=== PATIENT | female | born 1945 | race Caucasian/White ===

== ENCOUNTER 2018-08-16 06:00 | Day surgery (SDC) | payer MEDICARE, BC ==
[2018-08-16] MEDS ORDERED: Ketamine HCl 50 MG/ML IJ ONE (06:01)
[2018-08-16] MEDS ORDERED: DIPRIVAN 200 MG/20 ML IV ONE (06:01)
[2018-08-16] MEDS ORDERED: Lactated Ringers 1,000 ML IV SCH (06:30)
--- NOTE | 2018-08-16 08:42 | OP ---
SURGERY DATE/TIME: 08/16/2018 0716 PREOPERATIVE DIAGNOSIS: Abnormal Cologuard screening test. POSTOPERATIVE DIAGNOSIS: Colon polyps x4. PROCEDURE: Colonoscopy. SURGEON: Sal Rosenberg M.D. ANESTHESIA: MAC by Jerson Keene CRNA. ESTIMATED BLOOD LOSS: Minimal. SPECIMENS: There were two hot forceps polypectomies and two hot snare polypectomies. DESCRIPTION OF PROCEDURE: After informed written consent was obtained, the patient was taken to the endoscopy suite. She underwent monitored anesthesia. A digital rectal exam showed normal sphincter tone and no internal lesions. The scope was inserted into the rectum and sequentially the entire colonic mucosa was traversed. The level of cecum was reached and verified with direct visualization of ileocecal valve. There were two large sessile polyps, one in the cecum and one in the ascending colon very proximal ascending just outside the cecum, which were removed with hot snare in their entirety and retrieved with a trap and sent for pathology testing. There were two smaller more flat polyps which were removed with forceps removed in their entirety with good hemostasis and complete removal of the lesion. Upon withdrawal careful mucosal inspection of the rest of the mucosal structures revealed no gross abnormalities. Prior to withdrawal retroflexion was performed and showed no internal lesions. The scope was removed and the patient was transferred to the recovery room in good condition. She has been advised to follow up in a week for pathology results.
[2018-08-16 09:25] VITALS: BP 144/78; PULSE 87; O2SAT 96
== END 2018-08-16 08:16 | disposition home or self-care (01) ==
LOC: SDC 06:00
PROVIDERS: ATTEND Family Medicine
DX: Z12.11 Encounter for screening for malignant neoplasm of colon (principal); R19.5 Other fecal abnormalities; D12.0 Benign neoplasm of cecum; D12.2 Benign neoplasm of ascending colon; E11.9 Type 2 diabetes mellitus without complications; I10 Essential (primary) hypertension; E78.5 Hyperlipidemia, unspecified
CPT/HCPCS: 82962; 88305; 99100; J2704

== ENCOUNTER 2018-08-17 09:19 | Inpatient (IN) | payer MEDICARE, BC ==
[2018-08-17] MEDS ORDERED: Sodium Chloride 0.9% 1000 ML 1,000 ML IV SCH (09:45)
--- NOTE | 2018-08-17 09:48 | ERPHSYRPT ---
- History of Present Illness Time Seen by Provider: 08/17/18 09:38 Source: patient Exam Limitations: no limitations Patient Subjective Stated Complaint: Pt received a colonoscopy yesterday due to a positive cologaurd(?), Dr. Rivas removed 2 large polyps, pt now has blood that came from her rectum but did not have a bowel movement, this began last night Triage Nursing Assessment: Pt walked in ER, stable gait, hypertensive, denies pain, doesn't appear to be in any distress Physician History: 73-year-old white female with history of diabetes type 2, hyperlipidemia, high blood pressure Patient with history of colonoscopy with polypectomy yesterday states that last night she noticed blood in her stools notes blood in her stools today. She denies any pain she is not complaining weakness or dizziness. Past medical history includes diabetes type 2, high blood pressure, hyperlipidemia Past surgical history is negative. Social history rare alcohol. Timing/Duration: yesterday Severity: moderate Modifying Factors: Improves With: nothing Associated Symptoms: No nausea, No vomiting, No abdominal pain, No shortness of breath, No heartburn, No diaphoresis, No cough, No chills, No chest pain, No fever, No headaches, No loss of appetite, No malaise, No rash, No syncope, No seizure, No weakness Allergies/Adverse Reactions: Penicillins Adverse Reaction (Severe, Verified 08/17/18 09:36) Fainting Sulfa (Sulfonamide Antibiotics) Adverse Reaction (Intermediate, Verified 09:36) Headache Home Medications: Lisinopril 20 mg [Zestril 20 MG] 20 mg PO DAILY 08/09/18 [History] Lovastatin 20 mg PO DAILY 08/09/18 [History] Metformin HCl 500 mg [Glucophage 500 MG] 500 mg PO TID 08/09/18 [History] - Review of Systems Constitutional: No Fever, No Chills Eyes: No Symptoms Ears, Nose, & Throat: No Symptoms Respiratory: No Cough, No Dyspnea Cardiac: No Chest Pain, No Edema, No Syncope Abdominal/Gastrointestinal: Hematochezia, No Abdominal Pain, No Nausea, No Vomiting, No Diarrhea, No Constipation, No Hematemesis, No Melena, No Dysphagia , No Appetite Changes Genitourinary Symptoms: No Dysuria Musculoskeletal: No Back Pain, No Neck Pain Skin: No Rash Neurological: No Dizziness, No Focal Weakness, No Sensory Changes Psychological: No Symptoms Endocrine: No Symptoms All Other Systems: Reviewed and Negative - Past Medical History Pertinent Past Medical History: Yes Neurological History: No Pertinent History ENT History: No Pertinent History Cardiac History: High Cholesterol, Hypertension Respiratory History: No Pertinent History Endocrine Medical History: Diabetes Type II Musculoskeletal History: No Pertinent History GI Medical History: No Pertinent History History: No Pertinent History Psycho-Social History: No Pertinent History Female Reproductive Disorders: No Pertinent History - Past Surgical History Past Surgical History: No Neuro Surgical History: No Pertinent History Cardiac: No Pertinent History Respiratory: No Pertinent History Gastrointestinal: No Pertinent History Genitourinary: No Pertinent History Musculoskeletal: No Pertinent History Female Surgical History: No Pertinent History - Social History Smoking Status: Never smoker Exposure to second hand smoke: No Drug Use: none Patient Lives Alone: No - Nursing Vital Signs Nursing Vital Signs: Initial Vital Signs Temperature 98.2 F 08/17/18 09:25 Pulse Rate 97 H 08/17/18 09:25 Blood Pressure 153/83 08/17/18 09:25 O2 Sat by Pulse Oximetry 97 08/17/18 09:25 Pain Scale Pain Intensity 0 - Physical Exam General Appearance: no apparent distress, alert Eye Exam: PERRL/EOMI, eyes nml inspection Ears, Nose, Throat Exam: normal ENT inspection, TMs normal, pharynx normal, moist mucous membranes Neck Exam: normal inspection, non-tender, supple, full range of motion Respiratory Exam: normal breath sounds, lungs clear, No respiratory distress Cardiovascular Exam: regular rate/rhythm, normal heart sounds, normal peripheral pulses, capillary refill <2 sec Gastrointestinal/Abdomen Exam: soft, normal bowel sounds, No tenderness, No distention, No mass, No guarding, No ecchymosis, No pulsatile mass, No rebound, No hernia, No hepatomegaly, No organomegaly, No splenomegaly Rectal Exam: other (normal sphincter tone no masses gross hematochezia) Back Exam: normal inspection, normal range of motion, No CVA tenderness, No vertebral tenderness Extremity Exam: normal inspection, normal range of motion, pelvis stable Neurologic Exam: alert, oriented x 3, cooperative, 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, normal mood/affect, nml cerebellar function, nml station & gait, sensation nml, No motor deficits Skin Exam: normal color, warm, dry, No rash SpO2 Interpretation: normal (97%) SpO2: 97 Ordered Tests: Active Orders 24 hr Category Date Time Status IV Insertion STAT Care 08/17/18 09:44 Active IV Insertion-2nd Peripheral STAT Care 08/17/18 09:44 Active CBC W DIFF Stat Lab 08/17/18 09:42 Completed CMP Stat Lab 08/17/18 09:42 Completed Occult Blood, Other Screening Stat Lab 08/17/18 09:42 Completed PROTIME WITH INR Stat Lab 08/17/18 09:42 Completed PTT Stat Lab 08/17/18 09:42 Completed Medication Summary Generic Name Dose Route Start Last Admin Trade Name Freq PRN Reason Stop Dose Admin Sodium Chloride 1,000 mls @ 100 mls/hr 08/17/18 09:45 08/17/18 09:59 Sodium Chloride 0.9% 1000 Ml IV 09/16/18 09:44 100 mls/hr .Q10H CHILO Administration Lab/Rad Data: Laboratory Result Diagrams 08/17/18 09:42 08/17/18 09:42 Laboratory Results 08/17/18 08/17/18 08/17/18 Range/Units 09:42 09:42 09:42 WBC (4.0-10.5) K/mm3 RBC (4.1-5.4) M/mm3 Hgb (12.0-16.0) gm/dl Hct (35-47) % MCV (78-100) fl MCH (26-32) pg MCHC (32-36) g/dl RDW (11.5-14.0) % Plt Count (150-450) K/mm3 MPV (6-9.5) fl Gran % (36.0-66.0) % Eos # (Auto) (0-0.5) Absolute Lymphs (auto) (1.0-4.6) Absolute Monos (auto) (0.0-1.3) Lymphocytes % (24.0-44.0) % Monocytes % (0.0-12.0) % Eosinophils % (0.00-5.0) % Basophils % (0.0-0.4) % Absolute Granulocytes (1.4-6.9) Basophils # (0-0.4) PT 14.0 H (9.95-12.35) SECONDS INR 1.20 (0.8-3.0) APTT 26.8 (25.3-37.0) SECONDS Sodium 144 (137-145) mmol/L Potassium 3.6 (3.5-5.1) mmol/L Chloride 107 (98-107) mmol/L Carbon Dioxide 27 (22-30) mmol/L Anion Gap 13.7 (5-15) MEQ/L BUN 20 H (7-17) mg/dL Creatinine 0.75 (0.52-1.04) mg/dL Estimated GFR > 60.0 ML/MIN Glucose 127 H (74-106) mg/dL Calcium 9.3 (8.4-10.2) mg/dL Total Bilirubin 0.50 (0.2-1.3) mg/dL AST 30 (14-36) U/L ALT 30 (0-35) U/L Alkaline Phosphatase 68 (38-126) U/L Serum Total Protein 6.8 (6.3-8.2) g/dL Albumin 3.9 (3.5-5.0) g/dL Stool Occult Blood POSITIVE A (Negative) 08/17/18 Range/Units 09:42 WBC 4.5 (4.0-10.5) K/mm3 RBC 3.55 L (4.1-5.4) M/mm3 Hgb 12.4 (12.0-16.0) gm/dl Hct 36.2 (35-47) % MCV 102.0 H (78-100) fl MCH 34.9 H (26-32) pg MCHC 34.3 (32-36) g/dl RDW 12.0 (11.5-14.0) % Plt Count 182 (150-450) K/mm3 MPV 10.4 H (6-9.5) fl Gran % 72.5 H (36.0-66.0) % Eos # (Auto) 0.03 (0-0.5) Absolute Lymphs (auto) 0.95 L (1.0-4.6) Absolute Monos (auto) 0.25 (0.0-1.3) Lymphocytes % 21.1 L (24.0-44.0) % Monocytes % 5.5 (0.0-12.0) % Eosinophils % 0.7 (0.00-5.0) % Basophils % 0.2 (0.0-0.4) % Absolute Granulocytes 3.27 (1.4-6.9) Basophils # 0.01 (0-0.4) PT (9.95-12.35) SECONDS INR (0.8-3.0) APTT (25.3-37.0) SECONDS Sodium (137-145) mmol/L Potassium (3.5-5.1) mmol/L Chloride (98-107) mmol/L Carbon Dioxide (22-30) mmol/L Anion Gap (5-15) MEQ/L BUN (7-17) mg/dL Creatinine (0.52-1.04) mg/dL Estimated GFR ML/MIN Glucose (74-106) mg/dL Calcium (8.4-10.2) mg/dL Total Bilirubin (0.2-1.3) mg/dL AST (14-36) U/L ALT (0-35) U/L Alkaline Phosphatase (38-126) U/L Serum Total Protein (6.3-8.2) g/dL Albumin (3.5-5.0) g/dL Stool Occult Blood (Negative) - Progress Progress: improved Progress Note: 08/17/18 10:26 73-year-old white female arrives with complaint of rectal bleeding since last night patient had colonoscopy with polypectomy yesterday. She is not having any abdominal pain patient's vitals are stable patient's white count 4.5 hemoglobin to 0.4 hematocrit 36.2 INR is 1.2. Chemistry is essentially normal. Patient does have gross hematochezia with rectal exam. Positive occult blood. (Hematochezia) I've discussed patient's case will place patient on observation keep patient nothing by mouth provide IV normal saline. Keep patient on telemetry. Impression GI bleed. Status post recent polypectomy. - Departure Departure Disposition: Observation Clinical Impression: status post recent polypectomy GI bleed Qualifiers: GI bleed type/associated pathology: unspecified gastrointestinal hemorrhage type Qualified Code(s): K92.2 - Gastrointestinal hemorrhage, unspecified Condition: Fair Critical Care Time: No Referrals: FLOR RIVAS MD [Primary Care Provider] -
[2018-08-17] MEDS ORDERED: Sodium Chloride 0.9% 1000 ML 1,000 ML ONE (09:53)
[2018-08-17 09:57] LABS: BASOPHIL % 0.2 % (0.0-0.4); Basophil (Absolute #) 0.01 (0-0.4); Eosinophil % 0.7 % (0.00-5.0); Eosinophil (Absolute #) 0.03 (0-0.5); Granulocyte Absolute (ANC) 3.27 (1.4-6.9); Granulocytes % 72.5 % (36.0-66.0); Hematocrit 36.2 % (35-47); Hemoglobin 12.4 gm/dl (12.0-16.0); Lymphocyte (Absolute #) 0.95 (1.0-4.6); Lymphocytes % 21.1 % (24.0-44.0); Mean Corpuscular Hemoglobin 34.9 pg (26-32); Mean Corpuscular Hgb Concent. 34.3 g/dl (32-36); Mean Platelet Volume 10.4 fl (6-9.5); Monocyte (Absolute #) 0.25 (0.0-1.3); Monocytes % 5.5 % (0.0-12.0); Platelet Count 182 K/mm3 (150-450); Red Blood Count 3.55 M/mm3 (4.1-5.4); White Blood Count 4.5 K/mm3 (4.0-10.5)
[2018-08-17 10:09] LABS: INR 1.2 (0.8-3.0)
[2018-08-17 10:12] LABS: PTT 26.8 SECONDS (25.3-37.0)
[2018-08-17 10:14] LABS: ALBUMIN 3.9 g/dL (3.5-5.0); ALKALINE PHOSPHATASE 68 U/L (38-126); ANION GAP 13.7 MEQ/L (5-15); BLOOD UREA NITROGEN 20 mg/dL (7-17); CHLORIDE 107 mmol/L (98-107); Calcium 9.3 mg/dL (8.4-10.2); Carbon Dioxide 27 mmol/L (22-30); Creatinine 1 0.75 mg/dL (0.52-1.04); Glucose 127 mg/dL (74-106); Potassium 3.6 mmol/L (3.5-5.1); SGOT/AST 30 U/L (14-36); SGPT/ALT 30 U/L (0-35); SODIUM 144 mmol/L (137-145); Total Protein 6.8 g/dL (6.3-8.2)
[2018-08-17 14:48] LABS: Hematocrit 31.9 % (35-47); Hemoglobin 10.8 gm/dl (12.0-16.0); Mean Cell Volume 101.6 fl (78-100); Mean Corpuscular Hgb Concent. 33.9 g/dl (32-36); Mean Platelet Volume 10.6 fl (6-9.5); Platelet Count 160 K/mm3 (150-450); Red Blood Count 3.14 M/mm3 (4.1-5.4); Red Cell Distribution Width 11.9 % (11.5-14.0); White Blood Count 4.2 K/mm3 (4.0-10.5)
[2018-08-17 14:53] LABS: Mean Corpuscular Hemoglobin 34.3 pg (26-32)
--- NOTE | 2018-08-17 15:58 | PCM.HP ---
History of Present Illness - Chief Complaint Chief Complaint: Rectal bleed s/p intestinal polyps removed. History of Present Illness: is a 73 year old female who underwent colonoscopy on 08/16/2018 by myself, she had a positive cologuard and subsequently had 4 polyps removed yesterday morning. All 4 polyps were in the right hemicolon with 2 large polyps requiring hot snare removal and 2 requiring hot forceps removal, she has no immediate complications and was discharged to home yesterday. She was eating and drinking normally until last night, she had a stool that was loose with a large amount of bright red blood, she had another stool this morning with some clots so came for evaluation. She has been NPO since arrival and has not had any further bleeding since she has been here. There has been no fever, she has no abdominal pain. - Review of Systems Constitutional: No Fever, No Chills Respiratory: No Cough, No Short Of Breath Cardiac: No Chest Pain, No Edema, No Syncope Abdominal/Gastrointestinal: Hematochezia, No Abdominal Pain, No Nausea, No Vomiting, No Melena Genitourinary Symptoms: No Dysuria Skin: No Rash Neurological: No Dizziness, No Focal Weakness, No Sensory Changes All Other Systems: Reviewed and Negative Medications & Allergies Home Medications: Home Medication List Lisinopril 20 mg [Zestril 20 MG] 20 mg PO DAILY 08/09/18 [History Confirmed 08/17/18] Lovastatin 20 mg PO DAILY 08/09/18 [History Confirmed 08/17/18] Metformin HCl 500 mg [Glucophage 500 MG] 500 mg PO TID 08/09/18 [History Confirmed 08/17/18] Aspirin 81 mg PO DAILY #0 08/16/18 [Rx Confirmed 08/17/18] Allergies/Adverse Reactions: Allergies Allergy/AdvReac Type Severity Reaction Status Date / Time Penicillins AdvReac Severe Fainting Verified 08/17/18 09:36 Sulfa (Sulfonamide AdvReac Intermediate Headache Verified 08/17/18 09:36 Antibiotics) - Past Medical History Past Medical History: Yes Neurological History: No Pertinent History ENT History: No Pertinent History Cardiac History: High Cholesterol, Hypertension Respiratory History: No Pertinent History Endocrine Medical History: Diabetes Type I Musculoskelatal History: No Pertinent History GI Medical History: No Pertinent History History: No Pertinent History Pyscho-Social History: No Pertinent History Reproductive Disorders: No Pertinent History Comment: intestinal polyps - Female History Are you now?: No - Past Surgical History Past Surgical History: Yes (intestinal polyps removed) Neuro Surgical History: No Pertinent History Cardiac History: No Pertinent History Respiratory Surgery: No Pertinent History GI Surgical History: No Pertinent History Genitourinary Surgical Hx: No Pertinent History Musculskeletal Surgical Hx: No Pertinent History Female Surgical History: No Pertinent History - Social History Smoking Status: Never smoker Exposure to second hand smoke: Yes Alcohol: None Drug Use: none - Physical Exam Vital Signs: Vital Signs - 24 hr Temp Pulse Resp BP Pulse Ox 08/17/18 11:42 98 08/17/18 11:06 98.4 F 82 18 147/69 94 L 08/17/18 10:28 97 08/17/18 10:28 83 126/68 96 08/17/18 09:25 98.2 F 97 H 153/83 97 General Appearance: no apparent distress, alert Eye Exam: PERRL/EOMI, eyes nml inspection Respiratory Exam: normal breath sounds, lungs clear, No respiratory distress Cardiovascular Exam: regular rate/rhythm, normal heart sounds, normal peripheral pulses Gastrointestinal/Abdomen Exam: soft, normal bowel sounds, No tenderness, No mass Extremity Exam: normal inspection, normal range of motion, pelvis stable Skin Exam: normal color, warm, dry, No rash Results - Labs Lab/Micro Results: Lab Results-Last 24 Hours 08/17/18 08/17/18 08/17/18 Range/Units 09:42 09:42 09:42 WBC 4.5 (4.0-10.5) K/mm3 RBC 3.55 L (4.1-5.4) M/mm3 Hgb 12.4 (12.0-16.0) gm/dl Hct 36.2 (35-47) % MCV 102.0 H (78-100) fl MCH 34.9 H (26-32) pg MCHC 34.3 (32-36) g/dl RDW 12.0 (11.5-14.0) % Plt Count 182 (150-450) K/mm3 MPV 10.4 H (6-9.5) fl Gran % 72.5 H (36.0-66.0) % Eos # (Auto) 0.03 (0-0.5) Absolute Lymphs (auto) 0.95 L (1.0-4.6) Absolute Monos (auto) 0.25 (0.0-1.3) Lymphocytes % 21.1 L (24.0-44.0) % Monocytes % 5.5 (0.0-12.0) % Eosinophils % 0.7 (0.00-5.0) % Basophils % 0.2 (0.0-0.4) % Absolute Granulocytes 3.27 (1.4-6.9) Basophils # 0.01 (0-0.4) PT 14.0 H (9.95-12.35) SECONDS INR 1.20 (0.8-3.0) APTT 26.8 (25.3-37.0) SECONDS Sodium 144 (137-145) mmol/L Potassium 3.6 (3.5-5.1) mmol/L Chloride 107 (98-107) mmol/L Carbon Dioxide 27 (22-30) mmol/L Anion Gap 13.7 (5-15) MEQ/L BUN 20 H (7-17) mg/dL Creatinine 0.75 (0.52-1.04) mg/dL Estimated GFR > 60.0 ML/MIN Glucose 127 H (74-106) mg/dL Calcium 9.3 (8.4-10.2) mg/dL Total Bilirubin 0.50 (0.2-1.3) mg/dL AST 30 (14-36) U/L ALT 30 (0-35) U/L Alkaline Phosphatase 68 (38-126) U/L Serum Total Protein 6.8 (6.3-8.2) g/dL Albumin 3.9 (3.5-5.0) g/dL Stool Occult Blood (Negative) 08/17/18 08/17/18 Range/Units 09:42 14:40 WBC 4.2 (4.0-10.5) K/mm3 RBC 3.14 L (4.1-5.4) M/mm3 Hgb 10.8 L (12.0-16.0) gm/dl Hct 31.9 L (35-47) % MCV 101.6 H (78-100) fl MCH 34.3 H (26-32) pg MCHC 33.9 (32-36) g/dl RDW 11.9 (11.5-14.0) % Plt Count 160 (150-450) K/mm3 MPV 10.6 H (6-9.5) fl Gran % (36.0-66.0) % Eos # (Auto) (0-0.5) Absolute Lymphs (auto) (1.0-4.6) Absolute Monos (auto) (0.0-1.3) Lymphocytes % (24.0-44.0) % Monocytes % (0.0-12.0) % Eosinophils % (0.00-5.0) % Basophils % (0.0-0.4) % Absolute Granulocytes (1.4-6.9) Basophils # (0-0.4) PT (9.95-12.35) SECONDS INR (0.8-3.0) APTT (25.3-37.0) SECONDS Sodium (137-145) mmol/L Potassium (3.5-5.1) mmol/L Chloride (98-107) mmol/L Carbon Dioxide (22-30) mmol/L Anion Gap (5-15) MEQ/L BUN (7-17) mg/dL Creatinine (0.52-1.04) mg/dL Estimated GFR ML/MIN Glucose (74-106) mg/dL Calcium (8.4-10.2) mg/dL Total Bilirubin (0.2-1.3) mg/dL AST (14-36) U/L ALT (0-35) U/L Alkaline Phosphatase (38-126) U/L Serum Total Protein (6.3-8.2) g/dL Albumin (3.5-5.0) g/dL Stool Occult Blood POSITIVE A (Negative) Assessment/Plan (1) Lower GI bleed Current Visit: Yes Status: Acute Assessment & Plan: h/h and vitals are stable, advised to let nursing know if she has any more blood per rectum overnight. will keep npo, if no further bleeding and labs look good might try to feed her again tomorrow. if any further bleeding or need for immediate intervention will consult surgery. Code(s): K92.2 - GASTROINTESTINAL HEMORRHAGE, UNSPECIFIED (2) Post-polypectomy bleeding Current Visit: Yes Status: Acute Code(s): [id number] -
[2018-08-17] MEDS: Zestril 20 MG PO SCH (18:04)
[2018-08-17] MEDS: Sodium Chloride 0.9% 1000 ML 1,000 ML IV SCH (19:41)
[2018-08-18] MEDS: Sodium Chloride 0.9% 1000 ML 1,000 ML IV SCH ×3 (05:16→15:42)
[2018-08-18 06:30] LABS: ALBUMIN 3.2 g/dL (3.5-5.0); ALKALINE PHOSPHATASE 50 U/L (38-126); ANION GAP 13.6 MEQ/L (5-15); BLOOD UREA NITROGEN 13 mg/dL (7-17); CHLORIDE 109 mmol/L (98-107); Calcium 7.8 mg/dL (8.4-10.2); Carbon Dioxide 22 mmol/L (22-30); Creatinine 1 0.49 mg/dL (0.52-1.04); Glucose 78 mg/dL (74-106); Potassium 3.2 mmol/L (3.5-5.1); SGOT/AST 26 U/L (14-36); SGPT/ALT 22 U/L (0-35); SODIUM 142 mmol/L (137-145); Total Protein 5.8 g/dL (6.3-8.2)
[2018-08-18 06:35] LABS: BASOPHIL % 0.2 % (0.0-0.4); Basophil (Absolute #) 0.01 (0-0.4); Eosinophil % 0.2 % (0.00-5.0); Eosinophil (Absolute #) 0.01 (0-0.5); Granulocyte Absolute (ANC) 3.42 (1.4-6.9); Granulocytes % 77.8 % (36.0-66.0); Hematocrit 31.8 % (35-47); Hemoglobin 10.7 gm/dl (12.0-16.0); Lymphocyte (Absolute #) 0.73 (1.0-4.6); Lymphocytes % 16.6 % (24.0-44.0); Mean Cell Volume 101.6 fl (78-100); Mean Corpuscular Hgb Concent. 33.6 g/dl (32-36); Mean Platelet Volume 10.7 fl (6-9.5); Monocyte (Absolute #) 0.23 (0.0-1.3); Monocytes % 5.2 % (0.0-12.0); Platelet Count 149 K/mm3 (150-450); Red Blood Count 3.13 M/mm3 (4.1-5.4); White Blood Count 4.4 K/mm3 (4.0-10.5)
[2018-08-18 06:36] LABS: Mean Corpuscular Hemoglobin 34.1 pg (26-32)
--- NOTE | 2018-08-18 08:11 | PCM.NOTE ---
Date and Time: 08/18/18809 Subjective Assessment: patient had a bowel movement that was small with some more blood this morning, had 1 episode of blood last night. doesn't really have pain Objective Exam General Appearance: no apparent distress, alert Skin Exam: normal color, warm, dry Respiratory Exam: normal breath sounds, lungs clear, No respiratory distress Cardiovascular Exam: regular rate/rhythm, normal heart sounds Gastrointestinal/Abdomen Exam: soft, No tenderness, No mass Extremity Exam: normal inspection, normal range of motion OBJECTIVE DATA Vital Signs: Vital Signs - 24 hr Temp Pulse Resp BP Pulse Ox 08/18/18 07:28 98.6 F 88 18 153/73 96 08/18/18 07:15 96 08/18/18 04:00 99.7 F 96 H 16 134/67 95 08/18/18 00:12 99.1 F 86 16 159/66 97 08/17/18 20:15 99.2 F 89 17 140/72 96 08/17/18 20:00 95 08/17/18 16:00 98.9 F 83 16 134/68 96 08/17/18 11:42 98 08/17/18 11:06 98.4 F 82 18 147/69 94 L 08/17/18 10:28 97 08/17/18 10:28 83 126/68 96 08/17/18 09:25 98.2 F 97 H 153/83 97 Pain Assessment - Last Documented Pain Intensity 2 Pain Scale Used 0-10 Pain Scale,FLACC Intake and Output: Intake & Output 08/15/18 08/16/18 08/17/18 08/18/18 11:59 11:59 11:59 11:59 Intake Total 1761 Output Total 1100 Balance 661 Weight 62.3 kg 135.8 kg Lab Results: Lab Results-Last 24 Hours 08/17/18 08/17/18 08/17/18 Range/Units 09:42 09:42 09:42 WBC 4.5 (4.0-10.5) K/mm3 RBC 3.55 L (4.1-5.4) M/mm3 Hgb 12.4 (12.0-16.0) gm/dl Hct 36.2 (35-47) % MCV 102.0 H (78-100) fl MCH 34.9 H (26-32) pg MCHC 34.3 (32-36) g/dl RDW 12.0 (11.5-14.0) % Plt Count 182 (150-450) K/mm3 MPV 10.4 H (6-9.5) fl Gran % 72.5 H (36.0-66.0) % Eos # (Auto) 0.03 (0-0.5) Absolute Lymphs (auto) 0.95 L (1.0-4.6) Absolute Monos (auto) 0.25 (0.0-1.3) Lymphocytes % 21.1 L (24.0-44.0) % Monocytes % 5.5 (0.0-12.0) % Eosinophils % 0.7 (0.00-5.0) % Basophils % 0.2 (0.0-0.4) % Absolute Granulocytes 3.27 (1.4-6.9) Basophils # 0.01 (0-0.4) PT 14.0 H (9.95-12.35) SECONDS INR 1.20 (0.8-3.0) APTT 26.8 (25.3-37.0) SECONDS Sodium 144 (137-145) mmol/L Potassium 3.6 (3.5-5.1) mmol/L Chloride 107 (98-107) mmol/L Carbon Dioxide 27 (22-30) mmol/L Anion Gap 13.7 (5-15) MEQ/L BUN 20 H (7-17) mg/dL Creatinine 0.75 (0.52-1.04) mg/dL Estimated GFR > 60.0 ML/MIN Glucose 127 H (74-106) mg/dL Calcium 9.3 (8.4-10.2) mg/dL Total Bilirubin 0.50 (0.2-1.3) mg/dL AST 30 (14-36) U/L ALT 30 (0-35) U/L Alkaline Phosphatase 68 (38-126) U/L Serum Total Protein 6.8 (6.3-8.2) g/dL Albumin 3.9 (3.5-5.0) g/dL Stool Occult Blood (Negative) 08/17/18 08/17/18 08/18/18 Range/Units 09:42 14:40 05:48 WBC 4.2 (4.0-10.5) K/mm3 RBC 3.14 L (4.1-5.4) M/mm3 Hgb 10.8 L (12.0-16.0) gm/dl Hct 31.9 L (35-47) % MCV 101.6 H (78-100) fl MCH 34.3 H (26-32) pg MCHC 33.9 (32-36) g/dl RDW 11.9 (11.5-14.0) % Plt Count 160 (150-450) K/mm3 MPV 10.6 H (6-9.5) fl Gran % (36.0-66.0) % Eos # (Auto) (0-0.5) Absolute Lymphs (auto) (1.0-4.6) Absolute Monos (auto) (0.0-1.3) Lymphocytes % (24.0-44.0) % Monocytes % (0.0-12.0) % Eosinophils % (0.00-5.0) % Basophils % (0.0-0.4) % Absolute Granulocytes (1.4-6.9) Basophils # (0-0.4) PT (9.95-12.35) SECONDS INR (0.8-3.0) APTT (25.3-37.0) SECONDS Sodium 142 (137-145) mmol/L Potassium 3.2 L (3.5-5.1) mmol/L Chloride 109 H (98-107) mmol/L Carbon Dioxide 22 (22-30) mmol/L Anion Gap 13.6 (5-15) MEQ/L BUN 13 (7-17) mg/dL Creatinine 0.49 L (0.52-1.04) mg/dL Estimated GFR > 60.0 ML/MIN Glucose 78 (74-106) mg/dL Calcium 7.8 L D (8.4-10.2) mg/dL Total Bilirubin 0.30 (0.2-1.3) mg/dL AST 26 (14-36) U/L ALT 22 (0-35) U/L Alkaline Phosphatase 50 (38-126) U/L Serum Total Protein 5.8 L (6.3-8.2) g/dL Albumin 3.2 L (3.5-5.0) g/dL Stool Occult Blood POSITIVE A (Negative) 08/18/18 Range/Units 05:48 WBC 4.4 (4.0-10.5) K/mm3 RBC 3.13 L (4.1-5.4) M/mm3 Hgb 10.7 L (12.0-16.0) gm/dl Hct 31.8 L (35-47) % MCV 101.6 H (78-100) fl MCH 34.1 H (26-32) pg MCHC 33.6 (32-36) g/dl RDW 12.0 (11.5-14.0) % Plt Count 149 L (150-450) K/mm3 MPV 10.7 H (6-9.5) fl Gran % 77.8 H (36.0-66.0) % Eos # (Auto) 0.01 (0-0.5) Absolute Lymphs (auto) 0.73 L (1.0-4.6) Absolute Monos (auto) 0.23 (0.0-1.3) Lymphocytes % 16.6 L (24.0-44.0) % Monocytes % 5.2 (0.0-12.0) % Eosinophils % 0.2 (0.00-5.0) % Basophils % 0.2 (0.0-0.4) % Absolute Granulocytes 3.42 (1.4-6.9) Basophils # 0.01 (0-0.4) PT (9.95-12.35) SECONDS INR (0.8-3.0) APTT (25.3-37.0) SECONDS Sodium (137-145) mmol/L Potassium (3.5-5.1) mmol/L Chloride (98-107) mmol/L Carbon Dioxide (22-30) mmol/L Anion Gap (5-15) MEQ/L BUN (7-17) mg/dL Creatinine (0.52-1.04) mg/dL Estimated GFR ML/MIN Glucose (74-106) mg/dL Calcium (8.4-10.2) mg/dL Total Bilirubin (0.2-1.3) mg/dL AST (14-36) U/L ALT (0-35) U/L Alkaline Phosphatase (38-126) U/L Serum Total Protein (6.3-8.2) g/dL Albumin (3.5-5.0) g/dL Stool Occult Blood (Negative) Assessment/Plan (1) Lower GI bleed Current Visit: Yes Status: Acute Assessment & Plan: will consult surgery, h/h had a small drop after admission but remained steady overnight. keep NPO for now, uncertain if she will require repeat colonoscopy/ intervention for bleeding but would like surgery input in case of further procedure required. Code(s): K92.2 - GASTROINTESTINAL HEMORRHAGE, UNSPECIFIED (2) Post-polypectomy bleeding Current Visit: Yes Status: Acute Code(s): [id number] -
[2018-08-18] MEDS: Zestril 20 MG PO SCH (09:49)
[2018-08-18 17:08] LABS: BASOPHIL % 0.4 % (0.0-0.4); Basophil (Absolute #) 0.02 (0-0.4); Eosinophil % 0.2 % (0.00-5.0); Eosinophil (Absolute #) 0.01 (0-0.5); Granulocyte Absolute (ANC) 3.33 (1.4-6.9); Granulocytes % 73.7 % (36.0-66.0); Hematocrit 31.2 % (35-47); Hemoglobin 10.6 gm/dl (12.0-16.0); Lymphocyte (Absolute #) 0.92 (1.0-4.6); Lymphocytes % 20.4 % (24.0-44.0); Mean Cell Volume 100.6 fl (78-100); Mean Platelet Volume 10.4 fl (6-9.5); Monocyte (Absolute #) 0.24 (0.0-1.3); Monocytes % 5.3 % (0.0-12.0); Platelet Count 146 K/mm3 (150-450); Red Cell Distribution Width 11.8 % (11.5-14.0); White Blood Count 4.5 K/mm3 (4.0-10.5)
[2018-08-18 17:10] LABS: Mean Corpuscular Hemoglobin 34.1 pg (26-32)
[2018-08-18] MEDS: Sodium Chloride 0.9% W/ 20 mEq KCl/LITER 1,000 ML IV SCH (18:59)
[2018-08-19] MEDS: Sodium Chloride 0.9% W/ 20 mEq KCl/LITER 1,000 ML IV SCH ×2 (04:34→15:55)
[2018-08-19 05:55] LABS: BASOPHIL % 0.3 % (0.0-0.4); Basophil (Absolute #) 0.01 (0-0.4); Eosinophil % 0.5 % (0.00-5.0); Eosinophil (Absolute #) 0.02 (0-0.5); Granulocyte Absolute (ANC) 2.36 (1.4-6.9); Granulocytes % 64.3 % (36.0-66.0); Hematocrit 30.7 % (35-47); Hemoglobin 10.7 gm/dl (12.0-16.0); Lymphocyte (Absolute #) 1.03 (1.0-4.6); Lymphocytes % 28.1 % (24.0-44.0); Mean Corpuscular Hemoglobin 34.8 pg (26-32); Mean Corpuscular Hgb Concent. 34.9 g/dl (32-36); Mean Platelet Volume 10.4 fl (6-9.5); Monocyte (Absolute #) 0.25 (0.0-1.3); Monocytes % 6.8 % (0.0-12.0); Platelet Count 146 K/mm3 (150-450); Red Blood Count 3.07 M/mm3 (4.1-5.4); Red Cell Distribution Width 11.9 % (11.5-14.0); White Blood Count 3.7 K/mm3 (4.0-10.5)
[2018-08-19 06:16] LABS: ANION GAP 11.5 MEQ/L (5-15); BLOOD UREA NITROGEN 7 mg/dL (7-17); CHLORIDE 109 mmol/L (98-107); Calcium 7.7 mg/dL (8.4-10.2); Carbon Dioxide 25 mmol/L (22-30); Creatinine 1 0.46 mg/dL (0.52-1.04); Glucose 89 mg/dL (74-106); Potassium 3.4 mmol/L (3.5-5.1); SODIUM 141 mmol/L (137-145)
[2018-08-19] MEDS: Zestril 20 MG PO SCH (09:55)
--- NOTE | 2018-08-19 12:43 | PCM.NOTE ---
Date and Time: 08/19/18 1237 - Review of Systems Constitutional: Other (patient is seen with her at the bedside. She denies chills or sweats but is aware of low grade fever which is not her normal) Eyes: No Symptoms Ears, Nose, & Throat: No Symptoms Respiratory: No Symptoms Cardiac: No Symptoms Abdominal/Gastrointestinal: Abdominal Pain, Hematochezia, Appetite Changes, Other (Patient states she had passed alot of gas followed by drops of bright red blood but no BM this morning. She also has twinges of right periumbilical and LLQ abdominal pain. She is on full liquid diet ,her appetite is reduced.) Genitourinary Symptoms: No Symptoms Musculoskeletal: No Symptoms Skin: No Symptoms Neurological: No Symptoms Psychological: No Symptoms Hematologic/Lymphatic: Anemia Objective Exam Neurologic Exam: alert, oriented x 3, cooperative, normal mood/affect Skin Exam: normal color, warm, other (back with perspiriration/warmth ,no rash) Ears, Nose, Throat Exam: normal ENT inspection Respiratory Exam: normal breath sounds, lungs clear Cardiovascular Exam: regular rate/rhythm Gastrointestinal/Abdomen Exam: soft, tenderness (right periumbilical and LLQ , no guarding,no rebound), other (diminished BS) Rectal Exam: other (bright red blood in toilet ,hemocult yesterday was positive) OBJECTIVE DATA Vital Signs: Vital Signs - 24 hr Temp Pulse Resp BP Pulse Ox 08/19/18 08:00 99.7 F 82 18 145/64 94 L 08/19/18 07:00 94 L 08/19/18 04:00 99.0 F 83 18 118/65 93 L 08/18/18 23:44 100.0 F 86 18 150/67 94 L 08/18/18 20:00 97.9 F 97 H 19 146/66 96 08/18/18 15:35 98.9 F 92 H 18 147/78 97 Pain Assessment - Last Documented Pain Intensity 0 Pain Scale Used 0-10 Pain Scale Intake and Output: Intake & Output 08/17/18 08/18/18 08/19/18 08/20/18 11:59 11:59 11:59 11:59 Intake Total 1761 3920 Output Total 1500 1900 Balance 261 2020 Weight 62.3 kg 135.8 kg Lab Results: Accuchecks Date 08/19/18 Time 07:30 Accucheck Value: 104 Lab Results-Last 24 Hours 08/18/18 08/19/18 08/19/18 Range/Units 16:45 05:43 05:43 WBC 4.5 3.7 L (4.0-10.5) K/mm3 RBC 3.10 L 3.07 L (4.1-5.4) M/mm3 Hgb 10.6 L 10.7 L (12.0-16.0) gm/dl Hct 31.2 L 30.7 L (35-47) % MCV 100.6 H 100.0 (78-100) fl MCH 34.1 H 34.8 H (26-32) pg MCHC 34.0 34.9 (32-36) g/dl RDW 11.8 11.9 (11.5-14.0) % Plt Count 146 L 146 L (150-450) K/mm3 MPV 10.4 H 10.4 H (6-9.5) fl Gran % 73.7 H 64.3 (36.0-66.0) % Eos # (Auto) 0.01 0.02 (0-0.5) Absolute Lymphs (auto) 0.92 L 1.03 (1.0-4.6) Absolute Monos (auto) 0.24 0.25 (0.0-1.3) Lymphocytes % 20.4 L 28.1 (24.0-44.0) % Monocytes % 5.3 6.8 (0.0-12.0) % Eosinophils % 0.2 0.5 (0.00-5.0) % Basophils % 0.4 0.3 (0.0-0.4) % Absolute Granulocytes 3.33 2.36 (1.4-6.9) Basophils # 0.02 0.01 (0-0.4) Sodium 141 (137-145) mmol/L Potassium 3.4 L (3.5-5.1) mmol/L Chloride 109 H (98-107) mmol/L Carbon Dioxide 25 (22-30) mmol/L Anion Gap 11.5 (5-15) MEQ/L BUN 7 (7-17) mg/dL Creatinine 0.46 L (0.52-1.04) mg/dL Estimated GFR > 60.0 ML/MIN Glucose 89 (74-106) mg/dL Calcium 7.7 L (8.4-10.2) mg/dL Radiology Exams: Radiology Procedures Category Date Time Status CTA ABD/PEL W AND/OR W/O CONTR [CT] Routine Exams 08/19/18 12:25 Ordered Assessment/Plan (1) Abdominal pain, periumbilical Current Visit: Yes Status: Acute Assessment & Plan: Patient has developed abdominal pain and fever and loss of appetite since polypectomy 08/16/18. Discussed case with patient's PCP who agrees with CT abd and starting IV antibiotics. (2) Abdominal pain, LLQ (left lower quadrant) Current Visit: Yes Status: Acute Code(s): R10.32 - LEFT LOWER QUADRANT PAIN (3) Post-polypectomy bleeding Current Visit: Yes Status: Acute Assessment & Plan: Hgb has remained in the 10s since adm but patient continues to pass droplets of bright red blood with some mucus when she attempts to have BM which she showed me in the toilet from this mornings toileting. Code(s): VGY1109 -
[2018-08-19] MEDS: FLAGYL 500 MG IVPB 500 MG/100 ML BAG IV SCH ×2 (14:11→18:44)
[2018-08-19] MEDS ORDERED: HOLD METFORMIN PRODUCTS FOR 48 HOURS MC SCH (14:30)
[2018-08-19] MEDS: Levofloxacin 500MG/100ML D5W 500 MG/100 ML BAG IV SCH (15:50)
[2018-08-19 16:59] LABS: Hematocrit 33.3 % (35-47); Hemoglobin 11.5 gm/dl (12.0-16.0)
--- NOTE | 2018-08-19 20:54 | XRAY ---
Indication: Abdomen pain, hematochezia, and fever. Status post colonoscopy 3 days. Multiple contiguous axial images obtained through the abdomen and pelvis prior to and following 80 cc Isovue 370 contrast. Enteric contrast also used. Comparison: None Lung bases are clear. Heart is not enlarged with tiny pericardial effusion/thickening anteriorly. Small hiatal hernia. Noncontrasted images demonstrates nonobstructing right renal punctate calculus. Stomach is distended with contrast. Contrasted bowel loops appear nonobstructed. No free fluid/air. Postcontrast images demonstrates normal visceral enhancement and renal excretion. 2 left lobe hepatic cysts, largest measuring 4.3 cm. Left mid kidney demonstrates [id number] exophytic cysts, larger measuring 1.5 cm. The smaller 1.1 cm cyst appears slightly more dense, possible viscus/hemorrhagic. Remaining liver, pancreas, spleen, adrenal glands, kidneys, ureters, bladder, and uterus appear unremarkable. Mild aortoiliac calcifications. No AAA or pathologic retroperitoneal lymphadenopathy. Osseous structures intact with mild degenerative changes throughout the spine. Impression: 1. Nonobstructing right renal micro-calculus. 2. Left renal uplo-tg-pcra cysts as detailed. 3. Hepatic cysts. 4. Small hiatal hernia. 5. Remaining CT abdomen/pelvis with and without contrast is negative. Comment: Preliminary interpretation was made by [facility]. No critical discrepancy. CTDI 12.01
[2018-08-20] MEDS: FLAGYL 500 MG IVPB 500 MG/100 ML BAG IV SCH ×2 (00:10→06:33)
[2018-08-20 05:58] LABS: BASOPHIL % 0.3 % (0.0-0.4); Basophil (Absolute #) 0.01 (0-0.4); Eosinophil % 0.5 % (0.00-5.0); Eosinophil (Absolute #) 0.02 (0-0.5); Granulocyte Absolute (ANC) 2.26 (1.4-6.9); Granulocytes % 60.6 % (36.0-66.0); Hematocrit 31.6 % (35-47); Lymphocyte (Absolute #) 1.11 (1.0-4.6); Lymphocytes % 29.8 % (24.0-44.0); Mean Cell Volume 99.4 fl (78-100); Mean Corpuscular Hgb Concent. 34.8 g/dl (32-36); Mean Platelet Volume 10.2 fl (6-9.5); Monocyte (Absolute #) 0.33 (0.0-1.3); Monocytes % 8.8 % (0.0-12.0); Platelet Count 160 K/mm3 (150-450); Red Blood Count 3.18 M/mm3 (4.1-5.4); Red Cell Distribution Width 12.1 % (11.5-14.0); White Blood Count 3.7 K/mm3 (4.0-10.5)
[2018-08-20 06:02] LABS: Mean Corpuscular Hemoglobin 34.5 pg (26-32)
[2018-08-20 06:22] LABS: ALBUMIN 3.3 g/dL (3.5-5.0); ALKALINE PHOSPHATASE 54 U/L (38-126); BLOOD UREA NITROGEN 5 mg/dL (7-17); CHLORIDE 109 mmol/L (98-107); Calcium 8.2 mg/dL (8.4-10.2); Carbon Dioxide 25 mmol/L (22-30); Creatinine 1 0.44 mg/dL (0.52-1.04); Glucose 101 mg/dL (74-106); Potassium 3.3 mmol/L (3.5-5.1); SGOT/AST 33 U/L (14-36); SGPT/ALT 26 U/L (0-35); SODIUM 142 mmol/L (137-145)
[2018-08-20] MEDS: Zestril 20 MG PO SCH (10:38)
[2018-08-20] MEDS: Levofloxacin 500MG/100ML D5W 500 MG/100 ML BAG IV SCH (10:38)
--- NOTE | 2018-08-20 11:19 | PCM.DCORD ---
- Discharge Discharge Date: 08/20/18 (Patient and counceled about need for patient to have family with her until GI issue resolved(blood in stool)) Disposition: Home, Self-Care Condition: Stable Prescriptions: New Metronidazole 500 mg [Flagyl 500 MG] 500 mg PO BID #14 tablet Levofloxacin [Levaquin] 500 mg PO DAILY 7 Days #7 tablet Continue Lovastatin 20 mg PO DAILY Lisinopril 20 mg [Zestril 20 MG] 20 mg PO DAILY Discontinued Metformin HCl 500 mg [Glucophage 500 MG] 500 mg PO TID No Action Aspirin 81 mg PO DAILY #0 Instructions: Hypokalemia Additional Instructions: Patient is aware of need to stay on a potassium rich diet and will resume her OTC potassium supplement - 1 daily. Follow up with: FLOR RIVAS MD [Primary Care Provider] - 5 Days (incidental finding on CT abd/pelvis small renal mass)
--- NOTE | 2018-08-20 11:56 | PCM.DS ---
Discharge Summary Date of Admission: 08/18/18 08:10 Date of Discharge: 08/20/18 Admitting Physician: FLOR RIVAS Consults: Consults on Case 08/18/18 08:09 Consult Surgery ROUTINE Primary Care Provider: FLOR RIVAS Allergies Allergies Penicillins Adverse Reaction (Severe, Verified 08/17/18 09:36) Fainting Sulfa (Sulfonamide Antibiotics) Adverse Reaction (Intermediate, Verified 09:36) Headache Hospital Summary - Vitals & Intake/Output Vital Signs: Vital Signs Temperature 98.1 F 08/20/18 07:58 Pulse Rate 90 08/20/18 07:58 Respiratory Rate 18 08/20/18 07:58 Blood Pressure 162/75 08/20/18 07:58 O2 Sat by Pulse Oximetry 96 08/20/18 07:58 Intake & Output: Intake & Output 08/17/18 08/18/18 08/19/18 08/20/18 11:59 11:59 11:59 11:59 Intake Total 1761 3920 2826 Output Total 1500 1900 1900 Balance 261 2020 926 Weight 62.3 kg 135.8 kg 60.4 kg - Lab Result Diagrams: 08/20/18 05:50 08/20/18 05:50 Lab Results-Last 24 Hrs: Accuchecks Date 08/19/18 Time 11:30 Accucheck Value: 130 Lab Results-Last 24 Hours 08/19/18 08/19/18 08/19/18 Range/Units 00:00 14:32 16:56 WBC (4.0-10.5) K/mm3 RBC (4.1-5.4) M/mm3 Hgb 11.5 L (12.0-16.0) gm/dl Hct 33.3 L (35-47) % MCV (78-100) fl MCH (26-32) pg MCHC (32-36) g/dl RDW (11.5-14.0) % Plt Count (150-450) K/mm3 MPV (6-9.5) fl Gran % (36.0-66.0) % Eos # (Auto) (0-0.5) Absolute Lymphs (auto) (1.0-4.6) Absolute Monos (auto) (0.0-1.3) Lymphocytes % (24.0-44.0) % Monocytes % (0.0-12.0) % Eosinophils % (0.00-5.0) % Basophils % (0.0-0.4) % Absolute Granulocytes (1.4-6.9) Basophils # (0-0.4) Sodium (137-145) mmol/L Potassium (3.5-5.1) mmol/L Chloride (98-107) mmol/L Carbon Dioxide (22-30) mmol/L Anion Gap (5-15) MEQ/L BUN (7-17) mg/dL Creatinine (0.52-1.04) mg/dL Estimated GFR ML/MIN Glucose (74-106) mg/dL Calcium (8.4-10.2) mg/dL Total Bilirubin (0.2-1.3) mg/dL AST (14-36) U/L ALT (0-35) U/L Alkaline Phosphatase (38-126) U/L Serum Total Protein (6.3-8.2) g/dL Albumin (3.5-5.0) g/dL Stool Occult Blood POSITIVE A POSITIVE A (Negative) 08/19/18 08/19/18 08/20/18 Range/Units 18:26 19:36 05:50 WBC 3.7 L (4.0-10.5) K/mm3 RBC 3.18 L (4.1-5.4) M/mm3 Hgb 11.0 L (12.0-16.0) gm/dl Hct 31.6 L (35-47) % MCV 99.4 (78-100) fl MCH 34.5 H (26-32) pg MCHC 34.8 (32-36) g/dl RDW 12.1 (11.5-14.0) % Plt Count 160 (150-450) K/mm3 MPV 10.2 H (6-9.5) fl Gran % 60.6 (36.0-66.0) % Eos # (Auto) 0.02 (0-0.5) Absolute Lymphs (auto) 1.11 (1.0-4.6) Absolute Monos (auto) 0.33 (0.0-1.3) Lymphocytes % 29.8 (24.0-44.0) % Monocytes % 8.8 (0.0-12.0) % Eosinophils % 0.5 (0.00-5.0) % Basophils % 0.3 (0.0-0.4) % Absolute Granulocytes 2.26 (1.4-6.9) Basophils # 0.01 (0-0.4) Sodium (137-145) mmol/L Potassium (3.5-5.1) mmol/L Chloride (98-107) mmol/L Carbon Dioxide (22-30) mmol/L Anion Gap (5-15) MEQ/L BUN (7-17) mg/dL Creatinine (0.52-1.04) mg/dL Estimated GFR ML/MIN Glucose (74-106) mg/dL Calcium (8.4-10.2) mg/dL Total Bilirubin (0.2-1.3) mg/dL AST (14-36) U/L ALT (0-35) U/L Alkaline Phosphatase (38-126) U/L Serum Total Protein (6.3-8.2) g/dL Albumin (3.5-5.0) g/dL Stool Occult Blood POSITIVE A POSITIVE A (Negative) 08/20/18 08/20/18 Range/Units 05:50 08:00 WBC (4.0-10.5) K/mm3 RBC (4.1-5.4) M/mm3 Hgb (12.0-16.0) gm/dl Hct (35-47) % MCV (78-100) fl MCH (26-32) pg MCHC (32-36) g/dl RDW (11.5-14.0) % Plt Count (150-450) K/mm3 MPV (6-9.5) fl Gran % (36.0-66.0) % Eos # (Auto) (0-0.5) Absolute Lymphs (auto) (1.0-4.6) Absolute Monos (auto) (0.0-1.3) Lymphocytes % (24.0-44.0) % Monocytes % (0.0-12.0) % Eosinophils % (0.00-5.0) % Basophils % (0.0-0.4) % Absolute Granulocytes (1.4-6.9) Basophils # (0-0.4) Sodium 142 (137-145) mmol/L Potassium 3.3 L (3.5-5.1) mmol/L Chloride 109 H (98-107) mmol/L Carbon Dioxide 25 (22-30) mmol/L Anion Gap 11.0 (5-15) MEQ/L BUN 5 L (7-17) mg/dL Creatinine 0.44 L (0.52-1.04) mg/dL Estimated GFR > 60.0 ML/MIN Glucose 101 (74-106) mg/dL Calcium 8.2 L (8.4-10.2) mg/dL Total Bilirubin 0.30 (0.2-1.3) mg/dL AST 33 (14-36) U/L ALT 26 (0-35) U/L Alkaline Phosphatase 54 (38-126) U/L Serum Total Protein 6.0 L (6.3-8.2) g/dL Albumin 3.3 L (3.5-5.0) g/dL Stool Occult Blood POSITIVE A (Negative) Micro Results-Entire Visit: Accuchecks Date 08/19/18 Time 11:30 Accucheck Value: 130 - Radiology Exams Ordered Rad Exams-Entire Visit: Radiology Procedures Category Date Time Status ABDOMEN AND PELVIS W&WO CONTRA [CT] Routine Exams 08/19/18 12:25 Completed Final Diagnosis/Problem List - Final Discharge Diagnosis/Problem (1) Abdominal pain, periumbilical Current Visit: Yes Status: Acute (2) Abdominal pain, LLQ (left lower quadrant) Current Visit: Yes Status: Acute Code(s): R10.32 - LEFT LOWER QUADRANT PAIN (3) Post-polypectomy bleeding Current Visit: Yes Status: Acute Code(s): [id number] - - Discharge Disposition: Home, Self-Care Condition: Stable Prescriptions: New Metronidazole 500 mg [Flagyl 500 MG] 500 mg PO BID #14 tablet Levofloxacin [Levaquin] 500 mg PO DAILY 7 Days #7 tablet Continue Lovastatin 20 mg PO DAILY Lisinopril 20 mg [Zestril 20 MG] 20 mg PO DAILY Discontinued Metformin HCl 500 mg [Glucophage 500 MG] 500 mg PO TID No Action Aspirin 81 mg PO DAILY #0 Instructions: Hypokalemia Additional Instructions: Patient is aware of need to stay on a potassium rich diet and will resume her OTC potassium supplement - 1 daily. Follow up with: FLOR RIVAS MD [Primary Care Provider] - 5 Days (incidental finding on CT abd/pelvis small renal mass)
[2018-08-20 12:01] VITALS: BP 135/63; PULSE 87; O2SAT 97
== END 2018-08-20 13:15 | disposition home or self-care (01) | DRG 392 ==
LOC: ED 09:19 → MED SURG 10:47 → OBSVTOIN 08-18 08:10
PROVIDERS: ADMIT Family Medicine; ATTEND Family Medicine
DX: R10.33 Periumbilical pain (principal); K62.5 Hemorrhage of anus and rectum; R10.32 Left lower quadrant pain; Z98.890 Other specified postprocedural states; E11.9 Type 2 diabetes mellitus without complications; I10 Essential (primary) hypertension; E78.5 Hyperlipidemia, unspecified; E78.00 Pure hypercholesterolemia, unspecified; Z79.899 Other long term (current) drug therapy
CPT/HCPCS: 36000; 36415; 74178; 80048; 80053; 82272; 82962; 85014; 85018; 85025; 85027; 85610; 85730; 93268; 94762; 96360; 99285; G0378; J1956; A9270-GY

== ENCOUNTER 2021-09-03 12:11 | Emergency (ER) | payer MEDICARE ==
--- NOTE | 2021-09-03 12:13 | ERPHSYRPT ---
- History of Present Illness Time Seen by Provider: 09/03/21 12:13 Source: patient, EMS Exam Limitations: no limitations Physician History: This is a 76-year-old white female who is a patient of Dr. Booker and presents via EMS after injuring her head and suffered a laceration to her right temporal region just prior to arrival. Patient has a history of hypertension, elevated cholesterol, hypothyroidism and type 2 diabetes. Patient use the restroom at home and then got up and started walking away when she was walking when she felt dizzy to the point where she fell and hit her head on the right side of her temporal region. She is not on any anticoagulation therapy. EMS was contacted and the patient's pulse was in the normal range. She showed normal sinus rhythm on the strip that they saw on the monitor. Patient denies shortness of breath. She has no chest pain. She has no abdominal pain. She did states she had very loose stool just prior to her fall. There are no new medications. Patient is allergic to eggs. She did have scrambled eggs this morning. Typically, she does not have a problem with scrambled eggs. She does not have a rash anywhere. Occurred: just prior to arrival Reason for Fall: unknown, became dizzy Injuries/Pain Location: head Loss of Consciousness: no loss of consciousness Severity of Pain-Max: none Severity of Pain-Current: none Associated Symptoms (Fall): dizziness, No confusion, No chest pain, No neck pain, No seizures, No shortness of breath, No vomiting, No vision changes Allergies/Adverse Reactions: egg Allergy (Verified 09/03/21 12:24) Penicillins Adverse Reaction (Severe, Verified 08/17/18 09:36) Fainting Sulfa (Sulfonamide Antibiotics) Adverse Reaction (Intermediate, Verified 08/17/18 09:36) Headache Home Medications: Lisinopril 20 mg [Zestril 20 MG] 20 mg PO DAILY 08/09/18 [History] Lovastatin 20 mg PO DAILY 08/09/18 [History] Levothyroxine Sodium 75 Mcg [Synthroid 75 Mcg] 1 tab PO DAILY 09/03/21 [History] Metformin HCl 500 mg [Glucophage 500 MG] 1 tab PO DAILY 09/03/21 [History] Travel Risk - International Travel Have you traveled outside of the country in past 3 weeks: No - Coronavirus Screening Are you exhibiting any of the following symptoms?: No Close contact with a COVID-19 positive Pt in past 14-21 Days: No - Review of Systems Constitutional: No Symptoms Eyes: No Symptoms Ears, Nose, & Throat: No Symptoms Respiratory: No Symptoms Cardiac: No Symptoms Abdominal/Gastrointestinal: No Symptoms Genitourinary Symptoms: No Symptoms Musculoskeletal: No Symptoms Skin: Other (Laceration right temporal region) Neurological: Dizziness Psychological: No Symptoms Endocrine: No Symptoms Hematologic/Lymphatic: No Symptoms - Past Medical History Pertinent Past Medical History: Yes Neurological History: No Pertinent History ENT History: No Pertinent History Cardiac History: High Cholesterol, Hypertension Respiratory History: No Pertinent History Endocrine Medical History: Diabetes Type II, Hypothyroidism Musculoskeletal History: Arthritis, Other GI Medical History: No Pertinent History History: No Pertinent History Psycho-Social History: No Pertinent History Female Reproductive Disorders: No Pertinent History Other Medical History: Surgical History: colonoscopy - Past Surgical History Past Surgical History: Yes (intestinal polyps removed) Neuro Surgical History: No Pertinent History Cardiac: No Pertinent History Respiratory: No Pertinent History Gastrointestinal: No Pertinent History Genitourinary: No Pertinent History Musculoskeletal: No Pertinent History Female Surgical History: No Pertinent History - Social History Smoking Status: Never smoker Exposure to second hand smoke: Yes Drug Use: none Patient Lives Alone: No - Nursing Vital Signs Nursing Vital Signs: Initial Vital Signs Temperature 97.1 F 09/03/21 12:12 Pulse Rate 88 09/03/21 12:12 Respiratory Rate 18 09/03/21 12:12 Blood Pressure 151/63 09/03/21 12:12 O2 Sat by Pulse Oximetry 97 09/03/21 12:12 Pain Scale Pain Intensity 0 - Nader Coma Score Best Eye Response ([place]): (4) open spontaneously Best Verbal Response (Nader): (5) oriented Best Motor Response (Nader): (6) obeys commands Nader Total: 15 - Physical Exam General Appearance: no apparent distress, alert, anxiety Head Injury: lacerations (7 cm right angled temporal region laceration. No active bleeding. No foreign body), tenderness Eye Exam: PERRL/EOMI, eyes nml inspection ENT Exam: airway nml Neck Exam: supple, trachea midline, full range of motion, normal alignment, normal inspection, No c-collar in place Respiratory/Chest Exam: No chest tenderness, No respiratory distress Gastrointestinal Exam: No tenderness Rectal Exam: not done Back Exam: normal inspection, normal range of motion, No CVA tenderness, No vertebral tenderness Extremity Exam: normal inspection, normal range of motion, capillary refill <3 sec, pelvis stable Neurologic Exam: alert, oriented x 3, cooperative, cycle director II-XII nml as tested, normal mood/affect, nml cerebellar function, nml station & gait, sensation nml Skin Exam: normal color, warm, dry SpO2 Interpretation: normal O2 Delivery: Room Air Procedures - Laceration/Wound Repair Right Head Time of Procedure: 13:55 Wound Location: Right, head Wound Length (cm): 7 Wound's Depth, Shape: superficial, linear Wound Explored: clean (Clean laceration. Wound was explored in a bloodless field to the base and no foreign body noted) Irrigated: Yes Hibiclens Prep: Yes Anesthesia: 1% Lidocaine Wound Repaired With: sutures Suture Size/Type: 4-0, prolene Number of Sutures: 6 Layer Closure?: No Progress: 09/03/21 14:18 Patient tolerated the procedure well. Following repair of the laceration site, the area was cleaned and dried and a thin layer of antibiotic ointment (bacitracin) was applied. - Course Nursing assessment & vital signs reviewed: Yes EKG Interpreted by Me: RATE (82), Sinus Rhythm, NORMAL AXIS, NORMAL INTERVALS, NORMAL QRS, NORMAL ST-T, Other (No acute ischemic changes.) Ordered Tests: Active Orders 24 hr Category Date Time Status EKG-ER Only STAT Care 09/03/21 12:28 Active IV Insertion STAT Care 09/03/21 12:28 Active CERVICAL SPINE WO CONTRAST [CT] Stat Exams 09/03/21 12:31 Completed HEAD WITHOUT CONTRAST [CT] Stat Exams 09/03/21 12:28 Completed CBC W DIFF Stat Lab 09/03/21 13:00 Completed CMP Stat Lab 09/03/21 13:00 Completed CULTURE,URINE Stat Lab 09/03/21 16:02 Received T4 (Thyroxine) Stat Lab 09/03/21 13:00 Completed TROPONIN Q3H Lab 09/03/21 13:00 Completed TROPONIN Q3H Lab 09/03/21 15:55 Completed TROPONIN Q3H Lab 09/03/21 18:30 Ordered TROPONIN Q3H Lab 09/03/21 21:30 Ordered TROPONIN Q3H Lab 09/04/21 00:30 Ordered TSH [TSH, 3RD Generation] Stat Lab 09/03/21 13:00 Completed UA W/RFX CULTURE Stat Lab 09/03/21 16:02 Completed Medication Summary Generic Name Dose Route Start Last Admin Trade Name Aparna PRN Reason Stop Dose Admin Sodium Chloride 1,000 mls @ 100 mls/hr 09/03/21 12:30 09/03/21 12:48 Sodium Chloride 0.9% 1000 Ml IV 10/03/21 12:29 100 mls/hr .Q10H CHILO Administration Lab/Rad Data: Laboratory Result Diagrams 09/03/21 13:00 09/03/21 13:00 Laboratory Results 09/03/21 09/03/21 09/03/21 Range/Units 16:02 15:55 13:00 WBC (4.0-10.5) x10^3/uL RBC (4.1-5.4) x10^6/uL Hgb (12.0-16.0) g/dL Hct (35-47) % MCV (78-100) fL MCH (26-32) pg MCHC (32-36) g/dL RDW (11.5-14.0) % Plt Count (150-450) x10^3/uL MPV (7.5-11.0) fL Gran % (36.0-66.0) % Immature Gran % (Auto) (0.00-0.4) % Nucleat RBC Rel Count (0.00-0.1) % Eos # (Auto) (0-0.5) x10^3/uL Immature Gran # (Auto) (0.00-0.03) x10^3u/L Absolute Lymphs (auto) (1.0-4.6) x10^3/uL Absolute Monos (auto) (0.0-1.3) x10^3/uL Absolute Nucleated RBC (0.00-0.01) x10^3u/L Lymphocytes % (24.0-44.0) % Monocytes % (0.0-12.0) % Eosinophils % (0.00-5.0) % Basophils % (0.0-0.4) % Absolute Granulocytes (1.4-6.9) x10^3/uL Basophils # (0-0.4) x10^3/uL Sodium (137-145) mmol/L Potassium (3.5-5.1) mmol/L Chloride (98-107) mmol/L Carbon Dioxide (22-30) mmol/L Anion Gap (5-15) MEQ/L BUN (7-17) mg/dL Creatinine (0.52-1.04) mg/dL Estimated GFR ML/MIN Glucose (74-106) mg/dL Calcium (8.4-10.2) mg/dL Total Bilirubin (0.2-1.3) mg/dL AST (14-36) U/L ALT (0-35) U/L Alkaline Phosphatase (38-126) U/L Troponin I < 0.012 (0.000-0.034) ng/mL Serum Total Protein (6.3-8.2) g/dL Albumin (3.5-5.0) g/dL Thyroxine (T4) 8.47 (5.53-10.96) ug/dL TSH 3rd Generation (0.47-4.68) mIU/L Urinalys Dipstick Clnc MAIN LAB Urine Color YELLOW (YELLOW) Urine Appearance CLEAR (CLEAR) Urine pH 7.0 (5-6) Ur Specific [place] 1.015 (1.005-1.025) POC Urine Protein Conf NEGATIVE (Negative) Urine Ketones NEGATIVE (NEGATIVE) Urine Nitrite NEGATIVE (NEGATIVE) Urine Bilirubin NEGATIVE (NEGATIVE) Urine Urobilinogen 0.2 (0-1) mg/dL Urine Leukocytes MODERATE (NEGATIVE) Urine WBC (Auto) 26-50 (0-5) /HPF Urine RBC (Auto) 0-2 (0-2) /HPF U Epithel Cells (Auto) RARE (FEW) /HPF Urine Bacteria (Auto) RARE (NEGATIVE) /HPF Urine RBC MODERATE (0-5) Felipe/ul Ur Culture Indicated? YES Urine Glucose NEGATIVE (NEGATIVE) mg/dL 09/03/21 09/03/21 09/03/21 Range/Units 13:00 13:00 13:00 WBC (4.0-10.5) x10^3/uL RBC (4.1-5.4) x10^6/uL Hgb (12.0-16.0) g/dL Hct (35-47) % MCV (78-100) fL MCH (26-32) pg MCHC (32-36) g/dL RDW (11.5-14.0) % Plt Count (150-450) x10^3/uL MPV (7.5-11.0) fL Gran % (36.0-66.0) % Immature Gran % (Auto) (0.00-0.4) % Nucleat RBC Rel Count (0.00-0.1) % Eos # (Auto) (0-0.5) x10^3/uL Immature Gran # (Auto) (0.00-0.03) x10^3u/L Absolute Lymphs (auto) (1.0-4.6) x10^3/uL Absolute Monos (auto) (0.0-1.3) x10^3/uL Absolute Nucleated RBC (0.00-0.01) x10^3u/L Lymphocytes % (24.0-44.0) % Monocytes % (0.0-12.0) % Eosinophils % (0.00-5.0) % Basophils % (0.0-0.4) % Absolute Granulocytes (1.4-6.9) x10^3/uL Basophils # (0-0.4) x10^3/uL Sodium 142 (137-145) mmol/L Potassium 4.1 (3.5-5.1) mmol/L Chloride 103 (98-107) mmol/L Carbon Dioxide 29 (22-30) mmol/L Anion Gap 14.1 (5-15) MEQ/L BUN 17 (7-17) mg/dL Creatinine 0.77 (0.52-1.04) mg/dL Estimated GFR > 60.0 ML/MIN Glucose 153 H (74-106) mg/dL Calcium 9.8 (8.4-10.2) mg/dL Total Bilirubin 0.80 (0.2-1.3) mg/dL AST 32 (14-36) U/L ALT 24 (0-35) U/L Alkaline Phosphatase 77 (38-126) U/L Troponin I < 0.012 (0.000-0.034) ng/mL Serum Total Protein 7.9 (6.3-8.2) g/dL Albumin 4.6 (3.5-5.0) g/dL Thyroxine (T4) (5.53-10.96) ug/dL TSH 3rd Generation 1.610 (0.47-4.68) mIU/L Urinalys Dipstick Clnc Urine Color (YELLOW) Urine Appearance (CLEAR) Urine pH (5-6) Ur Specific [place] (1.005-1.025) POC Urine Protein Conf (Negative) Urine Ketones (NEGATIVE) Urine Nitrite (NEGATIVE) Urine Bilirubin (NEGATIVE) Urine Urobilinogen (0-1) mg/dL Urine Leukocytes (NEGATIVE) Urine WBC (Auto) (0-5) /HPF Urine RBC (Auto) (0-2) /HPF U Epithel Cells (Auto) (FEW) /HPF Urine Bacteria (Auto) (NEGATIVE) /HPF Urine RBC (0-5) Felipe/ul Ur Culture Indicated? Urine Glucose (NEGATIVE) mg/dL 09/03/21 Range/Units 13:00 WBC 11.1 H (4.0-10.5) x10^3/uL RBC 4.53 (4.1-5.4) x10^6/uL Hgb 14.7 (12.0-16.0) g/dL Hct 45.9 (35-47) % MCV 101.3 H (78-100) fL MCH 32.5 H (26-32) pg MCHC 32.0 (32-36) g/dL RDW 12.2 (11.5-14.0) % Plt Count 228 (150-450) x10^3/uL MPV 10.6 (7.5-11.0) fL Gran % 86.6 H (36.0-66.0) % Immature Gran % (Auto) 0.4 (0.00-0.4) % Nucleat RBC Rel Count 0.0 (0.00-0.1) % Eos # (Auto) 0.03 (0-0.5) x10^3/uL Immature Gran # (Auto) 0.04 H (0.00-0.03) x10^3u/L Absolute Lymphs (auto) 1.00 (1.0-4.6) x10^3/uL Absolute Monos (auto) 0.39 (0.0-1.3) x10^3/uL Absolute Nucleated RBC 0.00 (0.00-0.01) x10^3u/L Lymphocytes % 9.0 L (24.0-44.0) % Monocytes % 3.5 (0.0-12.0) % Eosinophils % 0.3 (0.00-5.0) % Basophils % 0.2 (0.0-0.4) % Absolute Granulocytes 9.61 H (1.4-6.9) x10^3/uL Basophils # 0.02 (0-0.4) x10^3/uL Sodium (137-145) mmol/L Potassium (3.5-5.1) mmol/L Chloride (98-107) mmol/L Carbon Dioxide (22-30) mmol/L Anion Gap (5-15) MEQ/L BUN (7-17) mg/dL Creatinine (0.52-1.04) mg/dL Estimated GFR ML/MIN Glucose (74-106) mg/dL Calcium (8.4-10.2) mg/dL Total Bilirubin (0.2-1.3) mg/dL AST (14-36) U/L ALT (0-35) U/L Alkaline Phosphatase (38-126) U/L Troponin I (0.000-0.034) ng/mL Serum Total Protein (6.3-8.2) g/dL Albumin (3.5-5.0) g/dL Thyroxine (T4) (5.53-10.96) ug/dL TSH 3rd Generation (0.47-4.68) mIU/L Urinalys Dipstick Clnc Urine Color (YELLOW) Urine Appearance (CLEAR) Urine pH (5-6) Ur Specific [place] (1.005-1.025) POC Urine Protein Conf (Negative) Urine Ketones (NEGATIVE) Urine Nitrite (NEGATIVE) Urine Bilirubin (NEGATIVE) Urine Urobilinogen (0-1) mg/dL Urine Leukocytes (NEGATIVE) Urine WBC (Auto) (0-5) /HPF Urine RBC (Auto) (0-2) /HPF U Epithel Cells (Auto) (FEW) /HPF Urine Bacteria (Auto) (NEGATIVE) /HPF Urine RBC (0-5) Felipe/ul Ur Culture Indicated? Urine Glucose (NEGATIVE) mg/dL - Departure Departure Disposition: Home Clinical Impression: Episode of syncope, Fall with injury, Head injury, Laceration of head, UTI (urinary tract infection) Condition: Stable Critical Care Time: No Referrals: ABDIEL BOOKER DO [Primary Care Provider] - Follow up/PCP as directed Additional Instructions: Drink plenty of fluids. Do not advance your diet beyond clear liquids until you are tolerating clear liquids well. Avoid eating any type of eggs or egg product. Follow-up with your primary care physician for further management. Keep your laceration repair site dry for 24 hours. After 24 hours, may wash the site with soap and water daily. After washing the laceration site with soap and water, blot dry use a hairdryer followed by applying a thin layer of antibiotic ointment of choice once daily. Suture removal is in 7 days. Take all your medications as prescribed. Prescriptions: Ciprofloxacin [Cipro 500 MG] 500 mg PO BID #14 tablet
[2021-09-03] MEDS ORDERED: Sodium Chloride 0.9% 1000 ML 1,000 ML IV SCH (12:30)
[2021-09-03] MEDS ORDERED: Sodium Chloride 0.9% 1000 ML 1,000 ML ONE (12:47)
--- NOTE | 2021-09-03 12:52 | XRAY ---
Indication: Right head injury following fall. Multiple contiguous axial images obtained through the head without contrast. Comparison: None Normal appearing brain parenchyma, ventricles, and bony calvarium for patient's age. Visualized paranasal sinuses and mastoid air cells are clear. Impression: Normal CT head without contrast exam.
--- NOTE | 2021-09-03 12:57 | XRAY ---
Indication: Right head injury following fall. Multiple contiguous axial images obtained through the cervical spine. Sagittal and coronal reformatted images obtained. Comparison: None Axial images negative for acute fracture, suspicious bony lesions, or spinal canal stenosis. Minimal C3-C6 degenerative endplate spurring and mild right C5-C7 degenerative facet arthropathy. Sagittal and coronal reformatted images demonstrates normal alignment with vertebral body heights/disc spaces maintained. No acute compression fracture, subluxation, or jumped facet. Normal appearing craniocervical junction. Visualized noncontrasted soft tissues demonstrates mild bilateral carotid calcifications. Lung apices clear. Impression: 1. Negative for acute fracture/subluxation. 2. Minimal multilevel degenerative changes and mild bilateral carotid calcifications.
[2021-09-03 13:35] LABS: Absolute Neutrophil Ct (ANC) 9.61 x10^3/uL (1.4-6.9); Basophil (Absolute #) 0.02 x10^3/uL (0-0.4); Eosinophil % 0.3 % (0.00-5.0); Eosinophil (Absolute #) 0.03 x10^3/uL (0-0.5); Hematocrit 45.9 % (35-47); Hemoglobin 14.7 g/dL (12.0-16.0); Mean Cell Volume 101.3 fL (78-100); Mean Corpuscular Hemoglobin 32.5 pg (26-32); Mean Platelet Volume 10.6 fL (7.5-11.0); Monocyte (Absolute #) 0.39 x10^3/uL (0.0-1.3); Monocytes % 3.5 % (0.0-12.0); Neutrophil % 86.6 % (36.0-66.0); Platelet Count 228 x10^3/uL (150-450); Red Blood Count 4.53 x10^6/uL (4.1-5.4); Red Cell Distribution Width 12.2 % (11.5-14.0); White Blood Count 11.1 x10^3/uL (4.0-10.5)
[2021-09-03 13:50] LABS: ALBUMIN 4.6 g/dL (3.5-5.0); ALKALINE PHOSPHATASE 77 U/L (38-126); ANION GAP 14.1 MEQ/L (5-15); BLOOD UREA NITROGEN 17 mg/dL (7-17); CHLORIDE 103 mmol/L (98-107); Calcium 9.8 mg/dL (8.4-10.2); Carbon Dioxide 29 mmol/L (22-30); Creatinine 1 0.77 mg/dL (0.52-1.04); EST GLOMERULAR FILTRATION RATE > 60.0 ML/MIN; Glucose 153 mg/dL (74-106); Potassium 4.1 mmol/L (3.5-5.1); SGOT/AST 32 U/L (14-36); SGPT/ALT 24 U/L (0-35); SODIUM 142 mmol/L (137-145); Total Protein 7.9 g/dL (6.3-8.2)
[2021-09-03 16:13] LABS: Bacteria RARE /HPF (NEGATIVE); Epithelial Cells RARE /HPF (FEW); RBC 0-2 /HPF (0-2); WBC 26-50 /HPF (0-5)
[2021-09-03 16:14] LABS: Appearance CLEAR (CLEAR); Bilirubin NEGATIVE (NEGATIVE); Glucose NEGATIVE (NEGATIVE); Ketones NEGATIVE (NEGATIVE); Nitrite NEGATIVE (NEGATIVE); Protein,Urine Dip NEGATIVE (Negative); RBC MODERATE Ery/ul (0-5); Specific Gravity 1.015 (1.005-1.025); Urine Cultured Indicated? YES; Urobilinogen 0.2 mg/dL (0-1)
[2021-09-03 16:15] LABS: Dipstick done @ ? MAIN LAB
[2021-09-03] MEDS ORDERED: Cipro 500 MG PO ONE (17:15)
[2021-09-03] MEDS ORDERED: Cipro 500 MG ONE (17:21)
[2021-09-03 18:05] VITALS: BP 159/79; PULSE 91; O2SAT 97
== END 2021-09-03 18:14 | disposition home or self-care (01) ==
LOC: ED 12:11
DX: S01.81XA Laceration without foreign body of other part of head, initial encounter (principal); S09.90XA Unspecified injury of head, initial encounter; W18.39XA Other fall on same level, initial encounter; Y92.002 Bathroom of unspecified non-institutional (private) residence as the place of occurrence of the external cause; R55 Syncope and collapse; N39.0 Urinary tract infection, site not specified; I10 Essential (primary) hypertension; E11.9 Type 2 diabetes mellitus without complications; E78.5 Hyperlipidemia, unspecified; Z79.84 Long term (current) use of oral hypoglycemic drugs; Z79.899 Other long term (current) drug therapy
CPT/HCPCS: 12002; 36000; 36415; 70450; 72125; 80053; 81015; 84436; 84443; 84484; 85025; 87086; 93005; 99284; A9270-GY

== ENCOUNTER 2021-09-15 08:42 | Emergency (ER) | payer MEDICARE ==
--- NOTE | 2021-09-15 08:50 | ERPHSYRPT ---
- History of Present Illness Time Seen by Provider: 09/15/21 08:50 Source: patient Exam Limitations: no limitations Physician History: This is a 76-year-old white female patient of Dr. Booker who has appointment tomorrow for replacement of a 48-hour Holter monitor and EEG but presents today with 2 days of dizziness. On Tuesday prior to this evaluation, patient did a lot of work outside. She thinks maybe she might have overdone it. Yesterday she began having some dizziness and rested and relaxed. However today, she woke up with dizziness and became concerned. Patient was seen on 09/03/2021 for symptoms of dizziness with syncope and falling and hitting her head. She did not fall since that time. At that time she was also diagnosed with a urinary tract infection. Patient has had no vomiting. She has no chest pain. She is not short of breath. She has not had any abdominal pain. Patient has a history of hypertension, elevated cholesterol, hypothyroidism and type 2 diabetes. Patient did have an appointment today to have the final suture removed from her right muslim laceration repair site. Timing/Duration: day(s) (2) Severity: mild Character of Deficits: none Deficits: no difficulties Baseline/Normal Cognition: alert oriented x 3 Current Cognition: alert oriented x 3 Baseline Gait: walks w/o assistance Associated Symptoms: denies symptoms Allergies/Adverse Reactions: egg Allergy (Verified 09/15/21 09:10) Penicillins Adverse Reaction (Severe, Verified 09/15/21 09:10) Fainting Sulfa (Sulfonamide Antibiotics) Adverse Reaction (Intermediate, Verified 09/15/21 09:10) Headache Home Medications: Lisinopril 20 mg [Zestril 20 MG] 20 mg PO DAILY 08/09/18 [History] Lovastatin 20 mg PO DAILY 08/09/18 [History] Levothyroxine Sodium 75 Mcg [Synthroid 75 Mcg] 1 tab PO DAILY 09/03/21 [History] Metformin HCl 500 mg [Glucophage 500 MG] 1 tab PO DAILY 09/03/21 [History] Hx Tetanus, Diphtheria Vaccination/Date Given: No Hx Influenza Vaccination/Date Given: No Hx Pneumococcal Vaccination/Date Given: No Travel Risk - International Travel Have you traveled outside of the country in past 3 weeks: No - Coronavirus Screening Are you exhibiting any of the following symptoms?: No Close contact with a COVID-19 positive Pt in past 14-21 Days: No - Vaccine Status Have you recieved a Covid-19 vaccination: No - Review of Systems Constitutional: No Symptoms Eyes: No Symptoms Ears, Nose, & Throat: No Symptoms Respiratory: No Symptoms Cardiac: No Symptoms Abdominal/Gastrointestinal: No Symptoms Genitourinary Symptoms: No Symptoms Musculoskeletal: No Symptoms Skin: No Symptoms Neurological: Dizziness Psychological: No Symptoms Endocrine: No Symptoms Hematologic/Lymphatic: No Symptoms Immunological/Allergic: No Symptoms All Other Systems: Reviewed and Negative - Past Medical History Pertinent Past Medical History: Yes Neurological History: No Pertinent History ENT History: No Pertinent History Cardiac History: High Cholesterol, Hypertension Respiratory History: No Pertinent History Endocrine Medical History: Diabetes Type II, Hypothyroidism Musculoskeletal History: Arthritis, Other GI Medical History: No Pertinent History History: No Pertinent History Psycho-Social History: No Pertinent History Female Reproductive Disorders: No Pertinent History Other Medical History: Surgical History: colonoscopy - Past Surgical History Past Surgical History: Yes (intestinal polyps removed) Neuro Surgical History: No Pertinent History Cardiac: No Pertinent History Respiratory: No Pertinent History Gastrointestinal: No Pertinent History Genitourinary: No Pertinent History Musculoskeletal: No Pertinent History Female Surgical History: No Pertinent History - Social History Smoking Status: Never smoker Exposure to second hand smoke: Yes Drug Use: none Patient Lives Alone: No - Nursing Vital Signs Nursing Vital Signs: Initial Vital Signs Temperature 98.6 F 09/15/21 09:10 Pulse Rate 76 09/15/21 09:10 Respiratory Rate 18 09/15/21 09:10 Blood Pressure 164/85 09/15/21 09:10 O2 Sat by Pulse Oximetry 100 09/15/21 09:10 Pain Scale Pain Intensity 0 - N[place] Coma Scale Best Eye Response ([place]): (4) open spontaneously Best Verbal Response ([place]): (5) oriented Best Motor Response ([place]): (6) obeys commands Nader Total: 15 - Physical Exam General Appearance: no apparent distress, alert, anxiety Eye Exam: bilateral eye: normal inspection, PERRL, EOMI Ears, Nose, Throat Exam: normal ENT inspection, moist mucous membranes Neck Exam: normal inspection, non-tender, supple, full range of motion Respiratory: normal breath sounds, lungs clear, airway intact, No chest tenderness, No respiratory distress Cardiovascular: regular rate/rhythm, normal heart sounds, normal peripheral pulses Gastrointestinal: soft, normal bowel sounds, No tenderness Pelvic Exam: not done Rectal Exam: not done Back Exam: normal inspection, normal range of motion, No CVA tenderness Extremity Exam: normal inspection, normal range of motion, pelvis stable Mental Status: alert, oriented 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, 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 Exam: normal hearing, normal speech, PERRL Coordination/Gait: normal finger to nose, normal gait, normal cerebellar function Motor/Sensory: no motor deficit, no sensory deficit, no pronator drift Skin Exam: normal color, warm, dry SpO2 Interpretation: normal O2 Delivery: Room Air - Course Nursing assessment & vital signs reviewed: Yes EKG Interpreted by Me: RATE (75), Sinus Rhythm, NORMAL AXIS, NORMAL INTERVALS, NORMAL QRS, NORMAL ST-T, Other (No acute ischemic changes on today's EKG.) Ordered Tests: Active Orders 24 hr Category Date Time Status EKG-ER Only STAT Care 09/15/21 09:01 Active Pulse Oximetry (ED) STAT Care 09/15/21 09:01 Active HEAD WITHOUT CONTRAST [CT] Stat Exams 09/15/21 09:01 Completed CBC W DIFF Stat Lab 09/15/21 09:15 Completed CMP Stat Lab 09/15/21 09:15 Completed CULTURE,URINE Stat Lab 09/15/21 11:01 Received UA W/RFX CULTURE Stat Lab 09/15/21 11:01 Completed Medication Summary Discontinued Medications Generic Name Dose Route Start Last Admin Trade Name Aparna PRN Reason Stop Dose Admin Ondansetron HCl 4 mg 09/15/21 09:01 09/15/21 09:20 Zofran 4 Mg/Udtablet Orally Disintegrating PO 09/15/21 09:02 4 mg STAT ONE Administration Ondansetron HCl Confirm 09/15/21 09:19 Zofran 4 Mg/Udtablet Orally Disintegrating Administered 09/15/21 09:20 Dose 4 mg .ROUTE .STK-MED ONE Lab/Rad Data: Laboratory Result Diagrams 09/15/21 09:15 09/15/21 09:15 Laboratory Results 09/15/21 09/15/21 09/15/21 Range/Units 11:01 09:15 09:15 WBC 8.3 (4.0-10.5) x10^3/uL RBC 4.06 L (4.1-5.4) x10^6/uL Hgb 13.7 (12.0-16.0) g/dL Hct 40.6 (35-47) % MCV 100.0 (78-100) fL MCH 33.7 H (26-32) pg MCHC 33.7 (32-36) g/dL RDW 11.9 (11.5-14.0) % Plt Count 211 (150-450) x10^3/uL MPV 10.2 (7.5-11.0) fL Gran % 87.3 H (36.0-66.0) % Immature Gran % (Auto) 0.5 H (0.00-0.4) % Nucleat RBC Rel Count 0.0 (0.00-0.1) % Eos # (Auto) 0.02 (0-0.5) x10^3/uL Immature Gran # (Auto) 0.04 H (0.00-0.03) x10^3u/L Absolute Lymphs (auto) 0.82 L (1.0-4.6) x10^3/uL Absolute Monos (auto) 0.16 (0.0-1.3) x10^3/uL Absolute Nucleated RBC 0.00 (0.00-0.01) x10^3u/L Lymphocytes % 9.9 L (24.0-44.0) % Monocytes % 1.9 (0.0-12.0) % Eosinophils % 0.2 (0.00-5.0) % Basophils % 0.2 (0.0-0.4) % Absolute Granulocytes 7.19 H (1.4-6.9) x10^3/uL Basophils # 0.02 (0-0.4) x10^3/uL Sodium 141 (137-145) mmol/L Potassium 3.6 (3.5-5.1) mmol/L Chloride 105 (98-107) mmol/L Carbon Dioxide 27 (22-30) mmol/L Anion Gap 12.7 (5-15) MEQ/L BUN 16 (7-17) mg/dL Creatinine 0.73 (0.52-1.04) mg/dL Estimated GFR > 60.0 ML/MIN Glucose 190 H (74-106) mg/dL Calcium 8.8 (8.4-10.2) mg/dL Total Bilirubin 0.80 (0.2-1.3) mg/dL AST 25 (14-36) U/L ALT 20 (0-35) U/L Alkaline Phosphatase 70 (38-126) U/L Serum Total Protein 6.8 (6.3-8.2) g/dL Albumin 3.9 (3.5-5.0) g/dL Urinalys Dipstick Clnc MAIN LAB Urine Color YELLOW (YELLOW) Urine Appearance CLEAR (CLEAR) Urine pH 7.5 (5-6) Ur Specific [place] 1.020 (1.005-1.025) POC Urine Protein Conf TRACE (Negative) Urine Ketones NEGATIVE (NEGATIVE) Urine Nitrite NEGATIVE (NEGATIVE) Urine Bilirubin NEGATIVE (NEGATIVE) Urine Urobilinogen 0.2 (0-1) mg/dL Urine Leukocytes NEGATIVE (NEGATIVE) Urine WBC (Auto) 3-5 (0-5) /HPF Urine RBC (Auto) 3-5 (0-2) /HPF U Epithel Cells (Auto) NONE (FEW) /HPF Urine Bacteria (Auto) RARE (NEGATIVE) /HPF Urine RBC TRACE-INTACT (0-5) Felipe/ul Urine Mucus (Auto) SLIGHT (NEGATIVE) /HPF Ur Culture Indicated? YES Urine Glucose NEGATIVE (NEGATIVE) mg/dL - Progress Progress: improved, re-examined Progress Note: 09/15/21 09:39 CAT scan of the head without contrast shows no acute intracranial abnormality. Counseled pt/family regarding: lab results, diagnosis, need for follow-up, rad results - Departure Departure Disposition: Home Clinical Impression: Dizziness Condition: Stable Critical Care Time: No Referrals: ABDIEL BOOKER DO [Primary Care Provider] - Follow up/PCP as directed Additional Instructions: Take your medication as prescribed. Follow-up with Dr. Laws's office for further evaluation management. Keep your appointment tomorrow for your outpatient EEG and placement of Holter monitor.
[2021-09-15] MEDS ORDERED: ZOFRAN ODT 4 MG PO ONE (09:01)
[2021-09-15] MEDS ORDERED: ZOFRAN ODT 4 MG ONE (09:19)
[2021-09-15 09:22] LABS: Absolute Neutrophil Ct (ANC) 7.19 x10^3/uL (1.4-6.9); Basophil (Absolute #) 0.02 x10^3/uL (0-0.4); Eosinophil % 0.2 % (0.00-5.0); Eosinophil (Absolute #) 0.02 x10^3/uL (0-0.5); Hematocrit 40.6 % (35-47); Hemoglobin 13.7 g/dL (12.0-16.0); Lymphocyte (Absolute #) 0.82 x10^3/uL (1.0-4.6); Lymphocytes % 9.9 % (24.0-44.0); Mean Corpuscular Hemoglobin 33.7 pg (26-32); Mean Corpuscular Hgb Concent. 33.7 g/dL (32-36); Mean Platelet Volume 10.2 fL (7.5-11.0); Monocyte (Absolute #) 0.16 x10^3/uL (0.0-1.3); Monocytes % 1.9 % (0.0-12.0); Neutrophil % 87.3 % (36.0-66.0); Platelet Count 211 x10^3/uL (150-450); Red Blood Count 4.06 x10^6/uL (4.1-5.4); Red Cell Distribution Width 11.9 % (11.5-14.0); White Blood Count 8.3 x10^3/uL (4.0-10.5)
[2021-09-15 09:33] LABS: ALBUMIN 3.9 g/dL (3.5-5.0); ALKALINE PHOSPHATASE 70 U/L (38-126); ANION GAP 12.7 MEQ/L (5-15); BLOOD UREA NITROGEN 16 mg/dL (7-17); CHLORIDE 105 mmol/L (98-107); Calcium 8.8 mg/dL (8.4-10.2); Carbon Dioxide 27 mmol/L (22-30); Creatinine 1 0.73 mg/dL (0.52-1.04); EST GLOMERULAR FILTRATION RATE > 60.0 ML/MIN; Glucose 190 mg/dL (74-106); Potassium 3.6 mmol/L (3.5-5.1); SGOT/AST 25 U/L (14-36); SGPT/ALT 20 U/L (0-35); SODIUM 141 mmol/L (137-145); Total Protein 6.8 g/dL (6.3-8.2)
--- NOTE | 2021-09-15 09:34 | XRAY ---
Indication: Dizziness. Status post fall one week ago. Multiple contiguous axial images obtained through the head without contrast. Comparison: September 03, 2021. Continued normal appearing brain parenchyma, ventricles, and bony calvarium for patient's age. Visualized paranasal sinuses and mastoid air cells are clear. Impression: Continued normal CT head without contrast exam.
[2021-09-15 10:15] VITALS: BP 168/85
[2021-09-15 11:02] VITALS: PULSE 73; O2SAT 95
[2021-09-15 12:15] LABS: Bacteria RARE /HPF (NEGATIVE); Mucus SLIGHT /HPF (NEGATIVE)
[2021-09-15 12:16] LABS: Appearance CLEAR (CLEAR); Bilirubin NEGATIVE (NEGATIVE); Glucose NEGATIVE (NEGATIVE); Ketones NEGATIVE (NEGATIVE); Nitrite NEGATIVE (NEGATIVE); Ph 7.5 (5-6); Protein,Urine Dip TRACE (Negative); RBC TRACE-INTACT Ery/ul (0-5); Urine Cultured Indicated? YES; Urobilinogen 0.2 mg/dL (0-1)
[2021-09-15 12:17] LABS: Dipstick done @ ? MAIN LAB
== END 2021-09-15 12:42 | disposition home or self-care (01) ==
LOC: ED 08:42
DX: R42 Dizziness and giddiness (principal); I10 Essential (primary) hypertension; E78.5 Hyperlipidemia, unspecified; E11.9 Type 2 diabetes mellitus without complications; Z79.84 Long term (current) use of oral hypoglycemic drugs; Z79.899 Other long term (current) drug therapy
CPT/HCPCS: 36415; 70450; 80053; 81015; 85025; 87086; 93005; 94760; 99284; Q0162